=== PATIENT | female | born 1955 | race Caucasian/White ===

== ENCOUNTER 2016-07-04 09:33 | Day surgery (SDC) | payer BC ==
[2016-07-02 09:21] VITALS: BMI 22.3
[~2016-07-04 09:33] MED LIST: LACTATED RINGERS 1,000 ML IV SCH; LIDOCAINE 1% 20 ML VIAL (10MG/ML) FOR IV START INTRADERMA PRN
[2016-07-04 09:48] VITALS: RESP 16; TEMP 96.1
[2016-07-04] MEDS ORDERED: PROPOFOL 10 MG/ML 20 ML VIAL IV ONE (10:32)
--- NOTE | 2016-07-04 10:49 | P.PCN ---
Date of Procedure: 07/04/16 Procedure(s) Performed: BRIEF HISTORY: Patient is a 61-year-old pleasant white female, scheduled for an elective colonoscopy as a part of evaluation of prior history of colon polyps. Last colonoscopy was 5 years ago. PROCEDURE PERFORMED: Colonoscopy with biopsy PREOPERATIVE DIAGNOSIS: History of colon polyps. IV sedation per Anesthesia. PROCEDURE: After informed consent was obtained, the patient, was brought into the endoscopy unit. IV sedation was administered by Anesthesia under continuous monitoring. Digital rectal examination was normal. Initially the Olympus CF- 160 flexible video colonoscope was then inserted in the rectum, gradually advanced into the cecum without any difficulty. Careful examination was performed as the scope was gradually being withdrawn. Ileocecal valve and the appendiceal orifice were visualized and appeared normal. Prep was excellent. Mucosa of the cecum appeared normal. In the ascending colon there was a small flat polyp identified which was removed by biopsy. The rest of the ascending colon, transverse colon, descending colon, sigmoid colon, and rectum appeared normal. Retroflexion was performed in the rectum and no lesions were seen. The patient tolerated the procedure well. IMPRESSION: Small flat ascending colon polyp status post removal by biopsy. Rest of the colon appeared normal. RECOMMENDATIONS: Findings of this examination were discussed with the patient as well as her family. She was advised to follow with the biopsy results and have a repeat colonoscopy in 5 years.
[2016-07-04 11:14] VITALS: BP 147/93; PULSE 57
== END 2016-07-04 11:31 | disposition home or self-care (01) ==
LOC: ORWHC2ENDO 09:33
PROVIDERS: ATTEND Internal Medicine Gastroenterology
DX: Z12.11 Encounter for screening for malignant neoplasm of colon (principal); K63.5 Polyp of colon; Z86.010 Personal history of colon polyps; Z88.5 Allergy status to narcotic agent
CPT/HCPCS: 88305; 45380; J2704

== ENCOUNTER → 2018-02-19 | Outpatient (CLI) | payer BC ==
[2018-02-19 11:41] VITALS: BP 158/81; PULSE 71; TEMP 96.7; BMI 23.6
--- NOTE | 2018-02-19 13:38 | P.HPOB ---
History of Present Illness H&P Date: 02/19/18 Chief Complaint: The patient is here for her routine gynecologic exam and mammogram. This is a 62-year-old G2 PII with an LMP of 1992. The patient is status post [facility] for benign reasons. The patient is without gynecologic complaints Review of Systems The patient's weight has been stable over the last year. She denies respiratory , cardiac, or G.I. problems. She denies maltreatment or falling. She denies any significant problems with urinary leakage. Past Medical History Past Medical History: No Reported History Additional Past Medical History / Comment(s): Osteoporosis(managed by PCP in [place]) . History of Any Multi-Drug Resistant Organisms: None Reported Past Surgical History: Section (x2), Cholecystectomy, Hysterectomy ( AMILCAR in 1992.), Orthopedic Surgery, Tubal Ligation Additional Past Surgical History / Comment(s): rt knee surgery, neck surgery for "extra gland", christianne cataracts. Colonoscopy 2017(4th, rec.rpt 5yrs) Past Anesthesia/Blood Transfusion Reactions: Previous Problems w/ Anesthesia Additional Past Anesthesia/Blood Transfusion Reaction / Comment(s): sometimes problem coming out Past Psychological History: No Psychological Hx Reported Smoking Status: Former smoker Past Alcohol Use History: Occasional Additional Past Alcohol Use History / Comment(s): quit smoking 2014, smoked since age 15, 1/2 PPD. Restarted smoking and quit again 02/18. Past Drug Use History: None Reported Additional History: She's been since 1975 and is retired. 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 - Past Family History Mother Family Medical History: No Reported History Medications and Allergies Home Medications Medication Instructions Recorded Confirmed Type Ascorbic Acid [Vitamin C] 500 mg PO DAILY 07/02/16 02/19/18 History Calcium Carbonate [Calcium] 600 mg PO DAILY 07/02/16 02/19/18 History Eye Vitamin 1 tab PO DAILY 07/02/16 02/19/18 History Multivitamins, Thera [Multivitamin 1 tab PO DAILY 07/02/16 02/19/18 History (formulary)] Alendronate Sodium [Fosamax] 70 mg PO WEEKLY 02/19/18 02/19/18 History Allergies Allergy/AdvReac Type Severity Reaction Status Date / Time codeine Allergy Vomiting Verified 02/19/18 11:41 Exam Vital Signs Temp Pulse BP 02/19/18 11:13 96.7 F L 71 158/81 Intake and Output 02/18/18 02/19/18 02/19/18 22:59 06:59 14:59 Other: Weight 62.596 kg Height 5'4", weight 138 pounds, BMI 23.7. This is a well-developed well-nourished white female who is alert and oriented times 3 in no acute distress. HEENT: Within normal limits. NECK: Supple without mass or thyromegaly. CHEST AND LUNGS: Clear to auscultation. HEART: Regular rate and rhythm. BREASTS: Are without mass or discharge. AXILLARY EXAM: Negative for adenopathy. BACK: Negative for CVA tenderness. ABDOMEN: Soft, nontender, without palpable masses. PELVIC EXAM: External genitalia appears normal with mild atrophy. Vagina appears normal is mild atrophy. There is no evidence of prolapse. Bimanual examination is negative for mass or tenderness. RECTAL EXAM: Rectovaginal exam is negative for mass or tenderness and is negative for occult blood. EXTREMITIES: Nontender. IMPRESSION: 1. 62-year-old menopausal female status post AMILCAR for benign reasons with normal gynecologic exam. 2. Elevated blood pressure. 3. History of osteoporosis recently started on alendronate by her primary care physician in [place]. PLAN: 1. Pap smears have been discontinued. 2. Self breast awareness was discussed with the patient. 3. Screening mammogram will be done today. 4. Osteoporosis management was discussed. I have stressed the importance of adequate calcium, vitamin D and regular exercise. Recommended amounts of calcium and vitamin D were also discussed. She will continue on alendronate which she recently started through her primary care physician in [place], Dr. Dale Hargrove. She will follow up with him for her prescription and for bone density testing. 5. She did receive a flu shot this fall. 6. She states she does home blood pressure checks. I recommended she do this on a regular basis and follow up with her primary care physician for elevated blood pressures. 7. She will return in one year, or have her annual well woman exam done in [place], if desired.
--- NOTE | 2018-02-20 13:00 | MM ---
Reason for exam: screening (asymptomatic). Last mammogram was performed 1 year and 2 months ago. History: Patient is postmenopausal. Took estrogen for 12 years 1 month beginning at age 35. Physical Findings: A clinical breast exam by your physician is recommended on an annual basis and results should be correlated with mammographic findings. MG 3D Screening Mammo W/Cad Bilateral CC and MLO view(s) were taken. Prior study comparison: January 01, 2017, bilateral MG screening mammo w CAD. January 24, 2016, bilateral MG screening mammo w CAD. The breast tissue is heterogeneously dense. This may lower the sensitivity of mammography. There is no discrete abnormality. No significant changes when compared with prior studies. ASSESSMENT: Negative, BI-RAD 1 RECOMMENDATION: Routine screening mammogram of both breasts in 1 year.
== END ==
LOC: WWCWWP 10:53
PROVIDERS: ATTEND Obstetrics & Gynecology
DX: Z12.31 Encounter for screening mammogram for malignant neoplasm of breast (principal)
CPT/HCPCS: 77063; 77067

== ENCOUNTER → 2019-02-24 | Outpatient (CLI) | payer OTHER ==
[2019-02-24 09:39] VITALS: BP 174/102; PULSE 66; RESP 16; TEMP 97.8
--- NOTE | 2019-02-24 10:13 | P.HPOB ---
History of Present Illness H&P Date: 02/24/19 Chief Complaint: The patient is here for her routine gynecologic exam and ma mmogram. This is a 63-year-old with an LMP of 1992. She is status post [facility] for benign reasons. The patient is without gynecologic complaints. Review of Systems The patient has lost 5 pounds over the last year. She denies respiratory, cardiac, or G.I. problems. She states she has been under lots of stress because she no longer wants to live in [place] and wants to come back to [place]. Past Medical History Past Medical History: No Reported History Additional Past Medical History / Comment(s): Osteoporosis(managed by PCP in [place]). 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 History of Any Multi-Drug Resistant Organisms: None Reported Past Surgical History: Section, Cholecystectomy, Hysterectomy, Orthopedic Surgery, Tubal Ligation Additional Past Surgical History / Comment(s): rt knee surgery, neck surgery for "extra gland", christianne cataracts. section 2. AMILCAR 1992. Colonoscopy 2017(4th, next after 5yrs) Past Anesthesia/Blood Transfusion Reactions: Previous Problems w/ Anesthesia Additional Past Anesthesia/Blood Transfusion Reaction / Comment(s): sometimes problem coming out Past Psychological History: No Psychological Hx Reported Smoking Status: Light tobacco smoker (10 per week) Past Alcohol Use History: Occasional (8 per week) Additional Past Alcohol Use History / Comment(s): quit smoking 2014, smoked since age 15, 1/2 PPD. Restarted smoking. Past Drug Use History: None Reported Additional History: She has been since 1975 and is retired. 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 - Past Family History Mother Family Medical History: No Reported History Medications and Allergies Home Medications Medication Instructions Recorded Confirmed Type Ascorbic Acid [Vitamin C] 500 mg PO DAILY 07/02/16 02/24/19 History Calcium Carbonate [Calcium] 600 mg PO DAILY 07/02/16 02/24/19 History Eye Vitamin 1 tab PO DAILY 07/02/16 02/24/19 History Multivitamins, Thera [Multivitamin 1 tab PO DAILY 07/02/16 02/24/19 History (formulary)] Alendronate Sodium [Fosamax] 70 mg PO WEEKLY 02/19/18 02/24/19 History Allergies Allergy/AdvReac Type Severity Reaction Status Date / Time codeine Allergy Vomiting Verified 02/24/19 09:32 Exam Vital Signs Temp Pulse Resp BP Pulse Ox 02/24/19 09:33 97.8 F 66 16 174/102 96 Intake and Output 02/23/19 02/24/19 02/24/19 22:59 06:59 14:59 Other: Weight 60.328 kg Repeat blood pressure 152/82. Height 5 feet 4 inches, weight 133 pounds, BMI 22.8. This is a well-developed well-nourished white female who is alert and oriented times 3 in no acute distress. HEENT: Within normal limits. NECK: Supple without mass or thyromegaly. CHEST AND LUNGS: Clear to auscultation. HEART: Regular rate and rhythm. BREASTS: Are without mass or discharge. AXILLARY EXAM: Negative for adenopathy. BACK: Negative for CVA tenderness. ABDOMEN: Soft, nontender, without palpable masses. PELVIC EXAM: External genitalia appears normal with mild atrophy. Vagina appears normal of mild atrophy. There is no evidence of prolapse. Bimanual examination is negative for mass or tenderness. RECTAL EXAM: Rectovaginal exam is negative for mass or tenderness and is negative for occult blood. EXTREMITIES: Nontender. IMPRESSION: 1. 63-year-old female status post AMILCAR for benign reasons with normal gynecologic exam. 2. Elevated blood pressure. 3. History of osteoporosis on alendronate which is prescribed and managed by her primary care physician in [place]. She has been on alendronate since about 2018. PLAN: 1. Pap smears have been discontinued. 2. Self breast awareness was discussed with the patient. 3. Weaning mammogram will be done today. 4. Osteoporosis management was discussed. I have stressed the importance of adequate calcium, vitamin D and regular exercise. Recommended amounts of calcium and vitamin D were also discussed. She will continue to use of Fosamax as prescribed by her primary care physician in [place]. 5. We have discussed her elevated blood pressure. She understands that her blood pressure has progressively gotten worse over the past several years. I have recommended that she see her primary care physician regarding blood pressure elevations. I have also recommended that she check her own blood pressure at home on a daily basis. We have discussed the increased risk for heart attack and stroke with smoking and elevated blood pressure. I have recommended that she quit smoking and discuss treatment for blood pressure with her primary care physician. 6. The patient was advised to return in 1 year for her well woman examination.
--- NOTE | 2019-02-27 10:25 | MM ---
Reason for exam: screening (asymptomatic). Last mammogram was performed 1 year ago. History: Patient is postmenopausal. Took estrogen for 12 years 1 month beginning at age 35. Physical Findings: A clinical breast exam by your physician is recommended on an annual basis and results should be correlated with mammographic findings. MG 3D Screening Mammo W/Cad Bilateral CC and MLO view(s) were taken. XCCL view(s) were taken of the right breast. Prior study comparison: February 19, 2018, bilateral MG 3d screening mammo w/cad. January 01, 2017, bilateral MG screening mammo w CAD. There are scattered fibroglandular densities. There is chronic nodularity in the right breast. No significant changes when compared with prior studies. ASSESSMENT: Negative, BI-RAD 1 RECOMMENDATION: Routine screening mammogram of both breasts in 1 year.
== END | disposition home or self-care (01) ==
LOC: WWCWWP 09:20
PROVIDERS: ATTEND Obstetrics & Gynecology
DX: Z12.31 Encounter for screening mammogram for malignant neoplasm of breast (principal)
CPT/HCPCS: 77063; 77067

== ENCOUNTER → 2020-02-23 | Outpatient (CLI) | payer MEDICARE, OTHER ==
[2020-02-23 12:57] VITALS: BP 143/89; PULSE 74; RESP 18; TEMP 98
--- NOTE | 2020-02-23 13:33 | P.HPOB ---
History of Present Illness H&P Date: 02/23/20 Chief Complaint: The patient is here for her routine gynecologic exam and ma mmogram. This is a 64-year-old with an LMP of 1992. The patient is without gynecologic complaints. She states she discontinued the alendronate in 2018 which she took for osteoporosis. She states she was concerned about possible side effects such as osteonecrosis of the jaw. She denied having any issues with the medication directly. She is status post [facility] for benign reasons. Review of Systems The patient has gained 11 pounds over the last year. She attributes to weight gain to quitting smoking in March 2019 as well as the current Covid pandemic. She denies respiratory, cardiac, or G.I. problems. Past Medical History Past Medical History: No Reported History Additional Past Medical History / Comment(s): Osteoporosis(managed by PCP in [place]) use alendronate for one year. 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 History of Any Multi-Drug Resistant Organisms: None Reported Past Surgical History: Section, Cholecystectomy, Hysterectomy, Orthopedic Surgery, Tubal Ligation Additional Past Surgical History / Comment(s): rt knee surgery, neck surgery for "extra gland", christianne cataracts. section 2. AMILCAR 1992. Colonoscopy 2017(4th, next after 5yrs) Past Anesthesia/Blood Transfusion Reactions: Previous Problems w/ Anesthesia Additional Past Anesthesia/Blood Transfusion Reaction / Comment(s): sometimes problem coming out Past Psychological History: No Psychological Hx Reported Smoking Status: Former smoker Past Alcohol Use History: Occasional (5 per week) Additional Past Alcohol Use History / Comment(s): quit smoking in March 2018. Past Drug Use History: None Reported Additional History: She has been since 1975 and is retired. She recently moved back from [place] February 2020. - Past Family History Mother Family Medical History: No Reported History Medications and Allergies Home Medications Medication Instructions Recorded Confirmed Type Calcium Carbonate [Calcium] 600 mg PO DAILY 07/02/16 02/23/20 History Eye Vitamin 1 tab PO DAILY 07/02/16 02/23/20 History Multivitamins, Thera [Multivitamin 1 tab PO DAILY 07/02/16 02/23/20 History (formulary)] Allergies Allergy/AdvReac Type Severity Reaction Status Date / Time codeine Allergy Vomiting Verified 02/23/20 12:52 Exam Vital Signs Temp Pulse Resp BP Pulse Ox 02/23/20 12:52 98.0 F 74 18 143/89 94 L Intake and Output 02/22/20 02/23/20 02/23/20 22:59 06:59 14:59 Other: Weight 65.317 kg Height 5 feet 3-1/2 inches, weight 144 pounds, BMI 25.1. This is a well-developed well-nourished white female who is alert and oriented times 3 in no acute distress. HEENT: Within normal limits. NECK: Supple without mass or thyromegaly. CHEST AND LUNGS: Clear to auscultation. HEART: Regular rate and rhythm. BREASTS: Are without mass or discharge. AXILLARY EXAM: Negative for adenopathy. BACK: Negative for CVA tenderness. ABDOMEN: Soft, nontender, without palpable masses. PELVIC EXAM: External genitalia appears normal mild atrophy. Vagina appears normal mild atrophy. There is no evidence of prolapse. Bimanual examination is negative for mass or tenderness. RECTAL EXAM: Rectovaginal exam is negative for mass or tenderness and is negative for occult blood. EXTREMITIES: Nontender. IMPRESSION: 1. 64-year-old menopausal female status post AMILCAR for benign reasons with normal gynecologic exam. 2. History of osteoporosis status post 1 years use of alendronate which was prescribed by her PCP in [place]. She discontinued alendronate in 2019. PLAN: 1. Pap smears have been discontinued. 2. Self breast awareness was discussed with the patient. 3. Screening mammogram will be done today. 4. Osteoporosis management was discussed. I have stressed the importance of adequate calcium, vitamin D and regular exercise. Recommended amounts of calcium and vitamin D were also discussed. I have recommended redoing her bone density test. She would like to do this next year. 5. She states she has a home pressure cuff and I have recommended that she check her own blood pressure on a regular basis. She will follow-up with Dr. calvillo for blood pressure elevations. 6. She was advised to return in one year for her annual well woman exam.
--- NOTE | 2020-02-24 11:50 | MM ---
Reason for exam: screening (asymptomatic). Last mammogram was performed 1 year ago. History: Patient is postmenopausal. Took estrogen for 12 years 1 month beginning at age 35. Physical Findings: A clinical breast exam by your physician is recommended on an annual basis and results should be correlated with mammographic findings. MG 3D Screening Mammo W/Cad Bilateral CC, MLO, and XCCL view(s) were taken. Prior study comparison: February 24, 2019, bilateral MG 3d screening mammo w/cad. February 19, 2018, bilateral MG 3d screening mammo w/cad. The breast tissue is heterogeneously dense. This may lower the sensitivity of mammography. There is no discrete abnormality. No significant changes when compared with prior studies. ASSESSMENT: Benign, BI-RAD 2 RECOMMENDATION: Routine screening mammogram of both breasts in 1 year.
== END | disposition home or self-care (01) ==
LOC: WWCWWP 12:32
PROVIDERS: ATTEND Obstetrics & Gynecology
DX: Z12.31 Encounter for screening mammogram for malignant neoplasm of breast (principal)
CPT/HCPCS: 77063; 77067

== ENCOUNTER 2020-08-03 13:13 | Emergency (ER) | payer MEDICARE ==
[2020-08-03] MEDS ORDERED: SODIUM CHLORIDE 0.9% 1,000 ML IV STA (14:24)
[2020-08-03] MEDS ORDERED: MECLIZINE 12.5 MG TAB PO STA (14:24)
--- NOTE | 2020-08-03 14:45 | ED ---
Dizziness HPI - General Chief Complaint: Dizziness Stated Complaint: High BP Time Seen by Provider: 08/03/20 14:11 Source: patient, RN notes reviewed Mode of arrival: wheelchair Limitations: no limitations - History of Present Illness Initial Comments: Patient is a 65-year-old female that presents to the emergency department complaining of dizziness 2 days. She notes that she had a procedure done on Saturday and when she follow her blood pressure was elevated quite high approximately 190 over the low 100s to 110s. She noted that she call her [facility] physician this morning who got her in and started on lisinopril 20 mg per she notes that after taking her blood pressure medication she felt better already. She did note that she gets some dizziness with position change such as turning her head from [id number]. She denied any other complaints or issues at this time. She was a well-appearing well-hydrated 65-year-old female in no apparent distress or pain. 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 He stated that he was concerned about the dizziness for several days. She denied any chest pain shortness of breath headache nausea vomiting diarrhea constipation fever fatigue chills change in vision lightheadedness. - Related Data Home Medications Medication Instructions Recorded Confirmed Calcium Carbonate [Calcium] 600 mg PO DAILY 07/02/16 02/23/20 Eye Vitamin 1 tab PO DAILY 07/02/16 02/23/20 Multivitamins, Thera [Multivitamin 1 tab PO DAILY 07/02/16 02/23/20 (formulary)] Allergies Allergy/AdvReac Type Severity Reaction Status Date / Time codeine Allergy Vomiting Verified 08/03/20 13:34 Review of Systems ROS Statement: Those systems with pertinent positive or pertinent negative responses have been documented in the HPI. ROS Other: All systems not noted in ROS Statement are negative. Past Medical History Past Medical History: No Reported History, Hypertension Additional Past Medical History / Comment(s): Osteoporosis(managed by PCP in [place]) use alendronate for one year. 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 History of Any Multi-Drug Resistant Organisms: None Reported Past Surgical History: Section, Cholecystectomy, Hysterectomy, Ortho pedic Surgery, Tubal Ligation Additional Past Surgical History / Comment(s): rt knee surgery, neck surgery for "extra gland", christianne cataracts. section 2. AMILCAR 1992. Colonoscopy 2017(4th, next after 5yrs) Past Anesthesia/Blood Transfusion Reactions: Previous Problems w/ Anesthesia Additional Past Anesthesia/Blood Transfusion Reaction / Comment(s): sometimes problem coming out Past Psychological History: No Psychological Hx Reported Smoking Status: Former smoker Past Alcohol Use History: Occasional Past Drug Use History: None Reported - Past Family History Mother Family Medical History: No Reported History General Exam Limitations: no limitations General appearance: alert, in no apparent distress Head exam: Present: atraumatic, normocephalic, normal inspection Eye exam: Present: normal appearance, PERRL, EOMI. Absent: scleral icterus, conjunctival injection, periorbital swelling Neck exam: Present: normal inspection Respiratory exam: Present: normal lung sounds bilaterally. Absent: respiratory distress, wheezes, rales, rhonchi, stridor Cardiovascular Exam: Present: regular rate, normal rhythm, normal heart sounds. Absent: systolic murmur, diastolic murmur, rubs, gallop, clicks GI/Abdominal exam: Present: soft, normal bowel sounds. Absent: distended, tenderness, guarding, rebound, rigid Extremities exam: Present: normal inspection, full ROM, normal capillary refill. Absent: tenderness, pedal edema, joint swelling, calf tenderness Neurological exam: Present: alert, oriented X3, CN II-XII intact Expanded Patient oriented to: Present: person, place, time Speech: Present: fluid speech Cranial nerves: EOM's Intact: Normal, Tongue Deviation: Normal, Nystagmus: Normal Cerebellar function: Finger to Nose: Normal Eye Response: (4) open spontaneously Motor Response: (6) obeys commands Verbal Response: (5) oriented Psychiatric exam: Present: normal affect, normal mood Skin exam: Present: warm, dry, intact, normal color. Absent: rash Course Vital Signs 08/03/20 13:32 Temperature 97.6 F Pulse Rate 74 Respiratory 18 Rate Blood Pressure 147/97 O2 Sat by Pulse 97 Oximetry EKG Findings - EKG Comments: EKG Findings:: Ventricular rate 69 bpm, WI interval 174 ms, QRS duration 88 ms, QT/QTc 440/471 ms, PRT axes 35/35/24. Normal sinus rhythm, normal ECG. Medical Decision Making - Medical Decision Making 65-year-old female complaining of dizziness 2 days stating she felt better after taking her blood pressure medication Labs, EKG, chest x-ray, CT angiogram of the head and neck, 1 L normal saline, 25 mg of meclizine ordered. Imaging negative for any acute process. Patient is comfortable sitting up in bed and ready to go home. - Lab Data Result diagrams: 08/03/20 14:45 08/03/20 14:45 Lab Results 08/03/20 08/03/20 08/03/20 Range/Units 14:45 14:45 14:45 WBC 6.2 (3.8-10.6) k/uL RBC 4.56 (3.80-5.40) m/uL Hgb 14.9 (11.4-16.0) gm/dL Hct 42.2 (34.0-46.0) % MCV 92.4 (80.0-100.0) fL MCH 32.7 (25.0-35.0) pg MCHC 35.3 (31.0-37.0) g/dL RDW 11.9 (11.5-15.5) % Plt Count 249 (150-450) k/uL MPV 7.5 Neutrophils % 60 % Lymphocytes % 26 % Monocytes % 7 % Eosinophils % 4 % Basophils % 1 % Neutrophils # 3.7 (1.3-7.7) k/uL Lymphocytes # 1.6 (1.0-4.8) k/uL Monocytes # 0.4 (0-1.0) k/uL Eosinophils # 0.3 (0-0.7) k/uL Basophils # 0.1 (0-0.2) k/uL PT 10.3 (9.0-12.0) sec INR 1.0 (<1.2) APTT 24.1 (22.0-30.0) sec Sodium (137-145) mmol/L Potassium (3.5-5.1) mmol/L Chloride (98-107) mmol/L Carbon Dioxide (22-30) mmol/L Anion Gap mmol/L BUN (7-17) mg/dL Creatinine (0.52-1.04) mg/dL Est GFR (CKD-EPI)AfAm (>60 ml/min/1.73 sqM) Est GFR (CKD-EPI)NonAf (>60 ml/min/1.73 sqM) Glucose (74-99) mg/dL Calcium (8.4-10.2) mg/dL Magnesium (1.6-2.3) mg/dL Total Bilirubin (0.2-1.3) mg/dL AST (14-36) U/L ALT (4-34) U/L Alkaline Phosphatase (38-126) U/L Troponin I (0.000-0.034) ng/mL Total Protein (6.3-8.2) g/dL Albumin (3.5-5.0) g/dL Urine Color Light Yellow Urine Appearance Clear (Clear) Urine pH 5.5 (5.0-8.0) Ur Specific [place] 1.009 (1.001-1.035) Urine Protein Negative (Negative) Urine Glucose (UA) Negative (Negative) Urine Ketones Negative (Negative) Urine Blood Negative (Negative) Urine Nitrite Negative (Negative) Urine Bilirubin Negative (Negative) Urine Urobilinogen <2.0 (<2.0) mg/dL Ur Leukocyte Esterase Negative (Negative) 08/03/20 08/03/20 Range/Units 14:45 14:45 WBC (3.8-10.6) k/uL RBC (3.80-5.40) m/uL Hgb (11.4-16.0) gm/dL Hct (34.0-46.0) % MCV (80.0-100.0) fL MCH (25.0-35.0) pg MCHC (31.0-37.0) g/dL RDW (11.5-15.5) % Plt Count (150-450) k/uL MPV Neutrophils % % Lymphocytes % % Monocytes % % Eosinophils % % Basophils % % Neutrophils # (1.3-7.7) k/uL Lymphocytes # (1.0-4.8) k/uL Monocytes # (0-1.0) k/uL Eosinophils # (0-0.7) k/uL Basophils # (0-0.2) k/uL PT (9.0-12.0) sec INR (<1.2) APTT (22.0-30.0) sec Sodium 139 (137-145) mmol/L Potassium 3.8 (3.5-5.1) mmol/L Chloride 103 (98-107) mmol/L Carbon Dioxide 29 (22-30) mmol/L Anion Gap 7 mmol/L BUN 17 (7-17) mg/dL Creatinine 0.63 (0.52-1.04) mg/dL Est GFR (CKD-EPI)AfAm >90 (>60 ml/min/1.73 sqM) Est GFR (CKD-EPI)NonAf >90 (>60 ml/min/1.73 sqM) Glucose 130 H (74-99) mg/dL Calcium 9.7 (8.4-10.2) mg/dL Magnesium 2.1 (1.6-2.3) mg/dL Total Bilirubin 0.6 (0.2-1.3) mg/dL AST 28 (14-36) U/L ALT 22 (4-34) U/L Alkaline Phosphatase 72 (38-126) U/L Troponin I <0.012 (0.000-0.034) ng/mL Total Protein 7.3 (6.3-8.2) g/dL Albumin 4.5 (3.5-5.0) g/dL Urine Color Urine Appearance (Clear) Urine pH (5.0-8.0) Ur Specific [place] (1.001-1.035) Urine Protein (Negative) Urine Glucose (UA) (Negative) Urine Ketones (Negative) Urine Blood (Negative) Urine Nitrite (Negative) Urine Bilirubin (Negative) Urine Urobilinogen (<2.0) mg/dL Ur Leukocyte Esterase (Negative) - EKG Data -: EKG Interpreted by Az EKG shows normal: sinus rhythm Rate: normal EKG Comments: Ventricular rate 69 bpm, WI interval 174 ms, QRS duration 88 ms, QT/QTc 440/471 ms, PRT axes 35/35/24. Normal sinus rhythm, normal ECG. - Radiology Data Radiology results: report reviewed, image reviewed Asked x-ray: Mild pulmonary interstitial prominence may return mild pulmonary edema versus chronic interstitial lung changes. Clinical correlation is recommended. CT of the brain without contrast: Limited exam due to artifact demonstrates no evidence of acute intracranial hemorrhage as visualized small calcific density along the anterior cerebral artery on the left suggestive of intracranial atherosclerotic disease. Correlate with MRI as clinically warranted. CT angiogram of the head and neck: No significant hemodynamic stenosis of the karate bifurcations. No sizable aneurysm or vascular malformation. In the right submental region there is pathological lymphadenopathy measuring short axis of 1.1 cm. Differential diagnoses also include heterotopic submandibular gland tissue. Additionally there is an area of enhancement measuring 1.2 cm within the hypopharynx anteriorly into the left within the subglottic mucosa ENT consultation suggested to exclude mucosal lesion. Disposition Clinical Impression: Dizziness Disposition: HOME SELF-CARE Condition: Stable Instructions (If sedation given, give patient instructions): Dizziness (ED) Additional Instructions: Please return to the Emergency Department if symptoms worsen or any other concerns. Follow-up with primary care in the next 3-5 days. Follow-up with ENT principal finding of area on computed tomography scan. Continue take medications at home as prescribed. Is patient prescribed a controlled substance at d/c from ED?: No Referrals: Hakeem Montilla MD [Primary Care Provider] - 1-2 days Trung Reynoso MD [STAFF PHYSICIAN] - 1-2 days
[2020-08-03 15:06] LABS: Basophils # (A) 0.1 k/uL (0-0.2); Basophils % (A) 1 %; Eosinophils # (A) 0.3 k/uL (0-0.7); Eosinophils % (A) 4 %; HCT 42.2 % (34.0-46.0); HGB 14.9 gm/dL (11.4-16.0); Lymphocytes # (A) 1.6 k/uL (1.0-4.8); Lymphocytes % (A) 26 %; MCH 32.7 pg (25.0-35.0); MCHC 35.3 g/dL (31.0-37.0); MCV 92.4 fL (80.0-100.0); Mean Platelet Volume 7.5; Monocytes # (A) 0.4 k/uL (0-1.0); Monocytes % (A) 7 %; Neutrophils # (A) 3.7 k/uL (1.3-7.7); Neutrophils % (A) 60 %; Platelet Count 249 k/uL (150-450); RBC 4.56 m/uL (3.80-5.40); RDW 11.9 % (11.5-15.5); WBC 6.2 k/uL (3.8-10.6)
[2020-08-03 15:13] LABS: Appearance,Urine Clear (Clear); Bilirubin,Urine Negative (Negative); Blood,Urine Negative (Negative); Color,Urine Light Yellow; Glucose,Urine (UA) Negative (Negative); Ketones,Urine Negative (Negative); Leukocyte Esterase,Urine Negative (Negative); Nitrite,Urine Negative (Negative); PH, Urine 5.5 (5.0-8.0); Partial Thromboplastin Time 24.1 sec (22.0-30.0); Protein,Urine Negative (Negative); Prothrombin Time 10.3 sec (9.0-12.0); Specific Gravity,Urine 1.009 (1.001-1.035); Urobilinogen,Urine <2.0 mg/dL (<2.0)
[2020-08-03 15:15] LABS: ALT 22 U/L (4-34); AST 28 U/L (14-36); African American GFR (CKD) >90 (>60 ml/min/1.73 sqM); Albumin 4.5 g/dL (3.5-5.0); Alkaline Phosphatase 72 U/L (38-126); Anion Gap 7 mmol/L; Blood Urea Nitrogen 17 mg/dL (7-17); Calcium 9.7 mg/dL (8.4-10.2); Carbon Dioxide 29 mmol/L (22-30); Chloride 103 mmol/L (98-107); Glucose 130 mg/dL (74-99); Magnesium 2.1 mg/dL (1.6-2.3); Non-African American GFR(CKD) >90 (>60 ml/min/1.73 sqM); Potassium 3.8 mmol/L (3.5-5.1); Sodium 139 mmol/L (137-145); Total Bilirubin 0.6 mg/dL (0.2-1.3); Total Protein 7.3 g/dL (6.3-8.2)
--- NOTE | 2020-08-03 15:49 | CT ---
EXAMINATION TYPE: CT brain wo con DATE OF EXAM: 08/03/2020 COMPARISON: None HISTORY: Dizziness and hypertension. CT DLP: 1176.8 mGycm Automated exposure control for dose reduction was used. FINDINGS: Exam limited by severe artifact. Assessment of the skull base and posterior fossa nondiagnostic. Isela ining portion of the visualized parenchymal demonstrate limitation along the occipital lobes. Visuali zed portions demonstrate no acute hemorrhage or mass effect or midline shift. Calvarium intact. Orbit s are symmetric. Craniocervical junction maintained. Sella turcica has a normal appearance. Tiny calc ification involving the left anterior cerebral artery IMPRESSION: LIMITED EXAM DUE TO ARTIFACT DEMONSTRATES NO EVIDENCE OF ACUTE INTRACRANIAL HEMORRHAGE VISUALIZED. SMALL CALCIFIC DENSITY ALONG THE ANTERIOR CEREBRAL ARTERY ON THE LEFT SUGGESTIVE OF INTRACRANIAL ATH EROSCLEROTIC DISEASE. CORRELATE WITH MRI CLINICALLY WARRANTED.
--- NOTE | 2020-08-03 15:53 | XR ---
EXAMINATION TYPE: XR chest 1V portable DATE OF EXAM: 08/03/2020 COMPARISON: 12/20/2009 HISTORY: 65-year-old female with dizziness, hypertension TECHNIQUE: Single frontal view of the chest is obtained. FINDINGS: AP single view chest was obtained. Heart size is within normal limits. Atherosclerotic aort a. No focal consolidation, pneumothorax or pleural effusion. Mild pulmonary interstitial prominence m ay be due to chronic interstitial changes versus mild edema. IMPRESSION: 1. Mild pulmonary interstitial prominence may represent mild pulmonary edema versus chronic interstit ial lung changes. Clinical correlation is recommended.
--- NOTE | 2020-08-03 16:18 | CT ---
EXAMINATION TYPE: CT angio head neck DATE OF EXAM: 08/03/2020 HISTORY: Dizziness x2 days and hypertension. COMPARISON: CT brain 08/03/2020 CT DLP: 438.5 mGycm. Automated Exposure Control for Dose Reduction was Utilized. TECHNIQUE: CTA scan of the neck is performed with IV Contrast, patient injected with 65ml mL of Isov ue 370, axial images are obtained, coronal and sagittal reformatted images are reviewed. Three-D ana paula nstructed images are created on an independent workstation and reviewed. FINDINGS: Exam limited due to artifact. Grossly the vertebral basilar system appears to be patent wit h the right vertebral artery slightly larger than the left. No sizable aneurysm or vascular malformat ion. Anterior cerebral and middle cerebral arteries are patent bilaterally. Suggestion of the right p osterior cerebral artery originating from the anterior circulation. Carotid bifurcations are widely patent bilaterally with no significant hemodynamic stenosis. Mild ath erosclerotic plaque aortic bifurcation. The submental space on the right there appears to be a normal-appearing submandibular gland however m ore cranial there is a soft tissue nodule measuring 1.2 cm in short axis suggestive of pathologic allyssa nopathy. Heterotopic submandibular tissue also the differential diagnosis. Additionally, the left sub mandibular gland is not well identified. There also appears to be area of enhancement within the hypo pharynx anteriorly in the left supraglottic region for which ENT consultation suggested to exclude mu cosal lesion. Multinodular thyroid changes are seen. Hypertrophic and degenerative change of the spin e. Shotty adenopathy seen throughout the compartments of the neck. Lung apices clear. IMPRESSION: 1. No significant hemodynamic stenosis of the carotid bifurcations. 2. No sizable aneurysm or vascular malformation. 3. In the right submental region there is pathologic lymphadenopathy measuring short axis of 1.1 cm. Differential diagnosis would also include heterotopic submandibular gland tissue. Additionally there is an area of enhancement measuring 1.2 cm within the hypopharynx anteriorly and to the left within t he supraglottic mucosa. ENT consultation suggested to exclude mucosal lesion.
[2020-08-03 17:26] VITALS: BP 146/88; PULSE 71; RESP 16; TEMP 98
== END 2020-08-03 17:25 | disposition home or self-care (01) ==
LOC: EC 13:13
DX: R42 Dizziness and giddiness (principal); I10 Essential (primary) hypertension; Z90.49 Acquired absence of other specified parts of digestive tract; Z90.710 Acquired absence of both cervix and uterus; Z98.51 Tubal ligation status; Z87.891 Personal history of nicotine dependence
CPT/HCPCS: 99284 ×2; 96360 ×2; 36415; 93005; 80053; 83735; 84484; 85025; 85610; 85730; 81003; 71045; 70496; 70450; 70498; Q9967

== ENCOUNTER → 2020-08-30 | Outpatient (CLI) | payer MEDICARE ==
--- NOTE | 2020-08-30 12:47 | US ---
EXAMINATION TYPE: US thyroid st tissue head/neck DATE OF EXAM: 08/30/2020 COMPARISON: CT CLINICAL HISTORY: E04.[address] GLAND SIZE: Right Lobe: 4.2 x 1.5 x 1.8 cm Overall Parenchyma: heterogenous Left Lobe: 3.9 x 1.4 x 1.6 cm Overall Parenchyma: heterogeneous Isthmus Thickness: 0.3 cm NODULES RIGHT: # of nodules measured on right: 1 1. 0.8 X 0.7 x 0.9 cm, mid medial, Colloid cyst Prior size: No prior Right lobe has multiple colloid cysts, largest cyst measured LEFT: # of nodules measured on left: 2 1. 1.2 X 0.8 x 1.0 cm, mid lateral, solid or almost completely solid, hypoechoic nodule, which is w ider than tall, with smooth margins, without echogenic foci. Prior size: No prior 2. 0.6 X 0.4 x 0.5 cm, mid, solid or almost completely solid, hypoechoic nodule, which is wider th an tall, with smooth margins, without echogenic foci. Prior size: No prior Left thyroid nodules are consistent with a TI-RADS 4 nodules. Continued sonographic follow-up is ana paula mmended. ISTHMUS: # of nodules measured in the isthmus: 0 Bilateral neck scanned, right submandibular area- normal appearing lymph node= 0.5 cm, otherwise no a bnormal lymph nodes could be visualized by ultrasound. Multiple nodules bilateral thyroid. IMPRESSION: 1. 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 2. Left thyroid nodules are consistent with a TI-RADS 4 nodules. Continued yearly sonographic follow- up is recommended. 3. 5 mm lymph node within the right submandibular region. This is likely reactive. 2017 ACR TI-RADS LEVEL: *Highest TI-RADS level nodule reported
== END | disposition home or self-care (01) ==
LOC: RADUSWWP 07:54
PROVIDERS: ATTEND Otolaryngology
DX: E04.2 Nontoxic multinodular goiter (principal)
CPT/HCPCS: 76536

== ENCOUNTER → 2021-01-18 | Outpatient (CLI) | payer MEDICARE ==
[~2021-01-18] MED LIST changes: +BAMLANIVIMAB (EUA) 700 MG, ETESEVIMAB (EUA) 1,400 MG in SODIUM CHLORIDE 0.9% 50 ML IVPB ONE; -LACTATED RINGERS 1,000 ML IV SCH; -LIDOCAINE 1% 20 ML VIAL (10MG/ML) FOR IV START INTRADERMA PRN; +SODIUM CHLORIDE 0.9% 50 ML IVPB ONE; +SODIUM CHLORIDE 0.9% 500 ML 500 ML in EMPTY BAG 1 BAG IV PRN
[2021-01-18 14:00] VITALS: RESP 16
[2021-01-18 14:38] VITALS: BP 152/93; PULSE 66; TEMP 97.9
== END ==
LOC: PROCWHC3 13:03
PROVIDERS: ATTEND Internal Medicine Geriatric Medicine
DX: U07.1 COVID-19 (principal); F17.200 Nicotine dependence, unspecified, uncomplicated; Z88.5 Allergy status to narcotic agent
CPT/HCPCS: 96360; J3490; M0245

== ENCOUNTER → 2021-03-01 | Outpatient (CLI) | payer OTHER ==
--- NOTE | 2021-03-01 10:05 | US ---
EXAMINATION TYPE: US thyroid st tissue head/neck DATE OF EXAM: 03/01/2021 COMPARISON: US CLINICAL HISTORY: E04.1 THYROID NODULE. Follow up multiple thyroid nodules. GLAND SIZE: Right Lobe: 3.7 x 1.9 x 1.2 cm Overall Parenchyma: homogeneous Left Lobe: 3.4 x 1.6 x 1.3 cm Overall Parenchyma: homogeneous Isthmus Thickness: 0.2 cm NODULES RIGHT: # of nodules measured on right: 3 largest of multiple 1. 0.9 X 0.9 x 0.8 cm, upper pole, mixed cystic, hypoechoic nodule, which is wider than tall, with smooth margins, with echogenic foci. Prior size: 0.8 x 0.9 x 0.7 cm 2. 0.7 X 0.7 x 0.5 cm, mid medial, mixed cystic, hypoechoic nodule, which is wider than tall, with smooth margins, with echogenic foci. Prior size: none measured 3. 0.8 X 0.6 x 0.4 cm, lower mid, spongiform, hypoechoic nodule, which is wider than tall, with ill -defined margins, without echogenic foci. Prior size: non measured LEFT: # of nodules measured on left: 3 largest of multiple 1. 1.3 X 0.9 x 0.7 cm, upper mid, spongiform, hypoechoic nodule, which is wider than tall, with lob ulated or irregular margins, with echogenic foci. Prior size: 1.2 x 1.0 x 0.8 cm 2. 0.6 X 0.6 x 0.6 cm, mid lateral, spongiform, hypoechoic nodule, which is wide as is tall, with ill-defined margins, without echogenic foci. Prior size: 0.6 x 0.5 x 0.4 cm 3. 0.5 X 0.5 x 0.3 cm, lower medial, cystic or almost completely cystic, very hypoechoic nodule, wh ich is wider than tall, with smooth margins, without echogenic foci. Prior size: none measured ISTHMUS: # of nodules measured in the isthmus: 0 Bilateral neck scanned: couple of lymph nodes are seen superior to left thyroid with larger node = 1. 2 x 1.0 x 0.4cm. IMPRESSION: Stable nonspecific thyroid nodularity.
== END | disposition home or self-care (01) ==
LOC: RADUSWWP 09:00
PROVIDERS: ATTEND Otolaryngology
DX: E04.2 Nontoxic multinodular goiter (principal)
CPT/HCPCS: 76536

== ENCOUNTER → 2021-08-18 | Outpatient (CLI) | payer MEDICARE ==
--- NOTE | 2021-08-20 11:14 | US ---
EXAMINATION TYPE: US thyroid st tissue head/neck DATE OF EXAM: 08/18/2021 COMPARISON: NONE CLINICAL HISTORY: E04.1 THYROID NODULE. GLAND SIZE: Right Lobe: 4.7 x 1.6 x 1.9 cm Overall Parenchyma: homogenous Left Lobe: 4.0 x 1.3 x 1.6 cm Overall Parenchyma: homogeneous Isthmus Thickness: 0.2 cm NODULES RIGHT: # of nodules measured on right: 3 largest of multiple 1.)1.0 x 0.7 x 1.0 cm, upper pole, cystic, anechoic nodule, which is wider than tall, with smooth ma rgins, with echogenic foci. Prior size: 0.9 X 0.9 x 0.8 cm 2.) 0.6 x 0.4 x 0.6cm, mid medial, cystic, anechoic nodule, which is wider than tall, with smooth mar gins, with echogenic foci. Prior size: 0.7 X 0.7 x 0.5 3.) 0.6 x 0.5 x 0.6cm, lower mid, spongiform, hypoechoic nodule, which is wider than tall, with ill- defined margins, without echogenic foci. Prior size: 0.8 X 0.6 x 0.4 LEFT: # of nodules measured on left: 3 largest of multiple 1. 1.2 x 0.7 x 0.9cm, upper mid, spongiform, hypoechoic nodule, which is wider than tall, with briana h margins. Prior size: 1.3 X 0.9 x 0.7 cm 2.) 0.5 x 0.5 x 0.5 cm, mid lateral, spongiform, hypoechoic nodule, which is wide as is tall, with i ll-defined margins, without echogenic foci. Prior size: 0.6 x 0.6 x 0.6 cm 3.) 0.7 x 0.3 x 0.6cm, lower medial, cystic or almost completely cystic, very hypoechoic nodule, whic h is wider than tall, with smooth margins, without echogenic foci. Prior size: 0.5 X 0.5 x 0.3 ISTHMUS: # of nodules measured in the isthmus: 0 Bilateral neck scanned, no evidence of lymphadenopathy. IMPRESSION: Mildly suspicious, recommend follow-up ultrasound in 2 years 2017 ACR TI-RADS LEVEL: TR 3 *Highest TI-RADS level nodule reported
== END | disposition home or self-care (01) ==
LOC: RADUSWWP 16:08
PROVIDERS: ATTEND Otolaryngology
DX: E04.2 Nontoxic multinodular goiter (principal)
CPT/HCPCS: 76536

== ENCOUNTER → 2021-11-07 | Outpatient (CLI) | payer MEDICARE ==
--- NOTE | 2021-11-08 01:15 | CONS ---
CONSULTATION REASON FOR CONSULTATION: Snoring. HISTORY OF PRESENT ILLNESS: A 66-year-old female patient coming in with symptoms of loud snoring. Today, she is accompanied by her . The patient goes to bed around 10:30 p.m., wakes up at 6:45 a.m. in the morning. No reported episodes of witnessed apneas. Denies waking up, choking, or gasping for air. No grinding of the teeth. No sleepwalking or sleep talking. No restlessness in lower extremities. No daytime issues with memory and concentration or tiredness, or fatigue, or sleepiness. Takes a few minutes to fall asleep and she wakes up refreshed. No recent weight gain. PAST MEDICAL HISTORY: Hypertension. PAST SURGICAL HISTORY: Cholecystectomy and hysterectomy. DRUG ALLERGIES: Not known. MEDICATIONS: 1. Amlodipine. 2. Lisinopril. SOCIAL HISTORY: The patient is a former smoker, quit in 2019. She has around 40 year smoking history on half pack of cigarettes a day. FAMILY HISTORY: Positive for asthma and high blood pressure. REVIEW OF SYSTEMS: A 14-point review of systems was done and positive findings are mentioned in history of present illness. Of significance is the absence of any nasal congestion or postnasal drainage or history of any sinus allergies. No recent weight gain. Her weight has remained stable. No substance abuse. No head trauma. PHYSICAL EXAMINATION: VITAL SIGNS: BP is 131/83, pulse 70, respirations 16, temperature 97.8, saturation 94% on room air. Height is 5 feet 4 inches, weight is 142, and neck size is 13.5 inches. GENERAL APPEARANCE: Calm, comfortable, no acute distress. HEENT: Head is atraumatic, normocephalic. NECK: Supple. Mallampati class 4. Significant crowding of posterior pharynx. No goiter or neck masses. Micrognathia and overbite are also present. LUNGS: Clear to auscultation. HEART: Sounds regular, rhythm normal. S1, S2. No murmurs. ABDOMEN: Soft, nontender. No organomegaly. EXTREMITIES: No edema, no cyanosis or clubbing. NEUROLOGIC: Awake and alert. There is no focal neurological deficit. IMPRESSION: 1. Snoring. Rule out obstructive sleep apnea. Chronically, sleep apnea is felt to be less likely as the patient does not have any typical symptomatology that follows with sleep apnea. She may have essentially primary snoring. On examination, she has micrognathia, overbite, and significant crowding of posterior pharynx, which probably has put her as an anatomic disadvantage resulting into excessive snoring. 2. Hypertension. PLAN: Do a sleep study to screen this patient for obstructive sleep apnea. If no sleep apnea, we will proceed with conservative measures of losing weight, sleeping on the side, avoiding alcohol intake at least 3 hours prior to going to bed and considering the possibility of a snore guard/oral appliance to improve her snoring severity. We will continue to follow. MMODL / IJN: [id number] /
== END ==
LOC: SLEEP 13:57
PROVIDERS: ATTEND Internal Medicine Critical Care Medicine
DX: R06.83 Snoring (principal); I10 Essential (primary) hypertension; Z87.891 Personal history of nicotine dependence; Z79.899 Other long term (current) drug therapy; Z88.5 Allergy status to narcotic agent
CPT/HCPCS: 99211

== ENCOUNTER → 2022-01-18 | Outpatient (CLI) | payer MEDICARE ==
--- NOTE | 2022-01-18 18:02 | BD ---
EXAMINATION TYPE: Axial Bone Density DATE OF EXAM: 01/18/2022 COMPARISON: NONE CLINICAL HISTORY: 66 years year old Female. ICD-10 CODE: Z78.0 Post menopausal Height: 5 FT 4 IN Weight: 143 FRAX RISK QUESTIONS: Alcohol (3 or more units per day): NO Family History (Parent hip fracture): YES Glucocorticoids (More than 3mos): NO (Ex: prednisone, prednisolone, methylprednisolone, dexamethasone, and hydrocortisone). History of Fracture in Adulthood: YES Secondary Osteoporosis: 1. Type 1 Diabetes: NO 2. Hyperthyroidism: NO 3. Menopause before 45: YES 4. Malnutrition: NO 5. Chronic liver disease: NO Rheumatoid Arthritis: NO Current Tobacco Use: NO RISK FACTORS HISTORY OF: Surgery to Spine/Hip(right/left)/Wrist (right/left): NO Family History of Osteoporosis: NO Active: YES Diet low in dairy products/other sources of calcium: NO Postmenopausal woman: YES Lost more than 2 inches in height since high school: NO Frequent falls: NO Poor Health: GOOD Hyperparathyroidism: NO Adrenal Insufficiency: NO MEDICATIONS: Additional Medications: BLOOD PRESSURE MEDS Additional History: EXAM MEASUREMENTS: Bone mineral densitometry was performed using the [email or web address] System. Bone mineral density as measured about the Lumbar spine is: ----- L1-L4(G/cm2): 0.934 T Score Values are as follows: ----- L1: -2.4 ----- L2: -2.2 ----- L3: -2.2 ----- L4: -1.6 ----- L1-L4: -2.1 BASELINE Bone mineral density about the R hip (g/cm2): 0.724 Bone mineral density about the L hip (g/cm2): 0.707 T Score values are as follows: -----R Neck: -2.3 -----L Neck: -2.4 -----R Total: -1.4 -----L Total: -1.9 BASELINE FRAX%s: The graph provided illustrates a 17.4 % chance for a major osteoporotic fx and a 5.0% chance for the hips probability for fx in 10 years time. IMPRESSION: Osteopenia (T Score between -2.5 and -1). Note that measurements are bordering on osteoporosis at the hips and L1 vertebral body segment. There is slightly increased risk of fracture and the patient may be considered for treatment. Re-Screen 2-5 years. NOTE: T-SCORE=SD OF THE YOUNG ADULT MEAN.
== END | disposition home or self-care (01) ==
LOC: RADBDWWP 14:49
PROVIDERS: ATTEND Obstetrics & Gynecology
DX: M85.89 Other specified disorders of bone density and structure, multiple sites (principal); Z78.0 Asymptomatic menopausal state
CPT/HCPCS: 77080

== ENCOUNTER → 2022-04-03 | Outpatient (CLI) | payer MEDICARE ==
[2022-04-03 14:09] VITALS: PULSE 73; RESP 16; TEMP 97.8
--- NOTE | 2022-04-03 14:54 | P.HPOB ---
History of Present Illness H&P Date: 04/03/22 Chief Complaint: The patient is here for her routine gynecologic exam and ma mmogram. This is a 66-year-old with an LMP of 1992. She is status post AMILCAR for benign reasons. She is without gynecologic complaints. Review of Systems The patient's weight has been stable over the last year. She denies respiratory, cardiac, or G.I. problems. Past Medical History Past Medical History: Hypertension Additional Past Medical History / Comment(s): Osteoporosis(managed by PCP in [place]) use alendronate for one year. Benign thyroid nodules. 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 History of Any Multi-Drug Resistant Organisms: None Reported Past Surgical History: Section, Cholecystectomy, Hysterectomy, Orthopedic Surgery, Tubal Ligation Additional Past Surgical History / Comment(s): rt knee surgery, neck surgery for "extra gland", christianne cataracts. section 2. AMILCAR 1992. Colonoscopy 2017(4th, next after 5yrs). Past Anesthesia/Blood Transfusion Reactions: Previous Problems w/ Anesthesia Additional Past Anesthesia/Blood Transfusion Reaction / Comment(s): sometimes problem coming out-TAKES LONGER TO WAKE Past Psychological History: No Psychological Hx Reported Smoking Status: Never smoker Past Alcohol Use History: Daily (2 drinks per day.) Additional Past Alcohol Use History / Comment(s): STARTED SMOKING AT AGE 16 quit smoking in March 2018.SMOKED 1/2 PPD Past Drug Use History: None Reported Additional History: She has been since 1975 and is retired. - Past Family History Mother Family Medical History: No Reported History Sister(s) Family Medical History: Dementia Additional Family Medical History / Comment(s): 3 sisters with dementia. Medications and Allergies Home Medications Medication Instructions Recorded Confirmed Type Calcium Carbonate [Calcium] 1,200 mg PO DAILY 07/02/16 04/03/22 History Multivitamins, Thera [Multivitamin 1 tab PO DAILY 07/02/16 04/03/22 History (formulary)] Cholecalciferol [Vitamin D3 (25 25 mcg PO DAILY 08/03/20 04/03/22 History Mcg = 1000 Iu)] Vit C/E/Zn/Coppr/Lutein/Zeaxan 1 tab PO BID 08/03/20 04/03/22 History [Preservision Areds 2 Softgel] lisinopriL 40 mg PO DAILY 01/18/21 04/03/22 History amLODIPine [Norvasc] 5 mg PO DAILY 02/22/21 04/03/22 History Allergies Allergy/AdvReac Type Severity Reaction Status Date / Time codeine Allergy Vomiting Verified 04/03/22 14:04 Exam Vital Signs Temp Pulse Resp Pulse Ox 04/03/22 14:05 97.8 F 73 16 96 Intake and Output 04/02/22 04/03/22 04/03/22 22:59 06:59 14:59 Other: Weight 66.678 kg Height 5 feet 4 inches, weight 146 pounds, BMI 25.2. This is a well-developed well-nourished white female who is alert and oriented times 3 in no acute distress. HEENT: Within normal limits. NECK: Supple without mass or thyromegaly. CHEST AND LUNGS: Clear to auscultation. HEART: Regular rate and rhythm. BREASTS: Are without mass or discharge. AXILLARY EXAM: Negative for adenopathy. BACK: Negative for CVA tenderness. ABDOMEN: Soft, nontender, without palpable masses. PELVIC EXAM: External genitalia appears normal with mild to moderate atrophy. Vagina appears normal mild atrophy. There is no evidence of prolapse. Bimanual examination is negative for mass or tenderness. RECTAL EXAM: Rectovaginal exam is negative for mass or tenderness and is negative for occult blood. EXTREMITIES: Nontender. IMPRESSION: 1. 66-year-old menopausal female status post AMILCAR for benign reasons, with normal gynecologic exam. 2. History of osteoporosis status post 1 years use of alendronate. PLAN: 1. Pap smears have been discontinued. 2. Self breast awareness was discussed with the patient. We have also discussed symptoms associated with inflammatory breast cancer. 3. Screening mammogram will be done today. 4. Osteoporosis management was discussed. I have stressed the importance of adequate calcium, vitamin D and regular exercise. Recommended amounts of calcium and vitamin D were also discussed. Her most recent bone density test was done on 01/18/2022 and was in the osteopenia range. We will plan on repeating bone density test in approximately 2 years. 5. She believes she is due for a colonoscopy and we'll arrange this through her PCP. 6. She was advised to return in one year for her annual well woman exam.
--- NOTE | 2022-04-04 08:37 | MM ---
Reason for Exam: Screening (asymptomatic). Last screening mammogram was performed 12 month(s) ago. Patient History: Menarche at age 16. First Full-Term at age 24. Hysterectomy at age 35. Postmenopausal. Estrogen, starting at age 35 for 12 years, 1 month. Risk Values: [place] 5 year model risk: 1.7%. NCI Lifetime model risk: 5.9%. Prior Study Comparison: 02/24/2019 Bilateral Screening Mammogram, [facility]. 02/23/2020 Bilateral Screening Mammogram, [facility]. 03/21/2021 Bilateral Screening Mammogram, [facility]. Tissue Density: The breast tissue is heterogeneously dense. This may lower the sensitivity of mammography. Findings: Analyzed By CAD. There is no suspicious group of microcalcifications or new suspicious mass in either breast. Overall Assessment: Negative, BI-RAD 1 Management: Screening Mammogram of both breasts in 1 year. A clinical breast exam by your physician is recommended on an annual basis and results should be correlated with mammographic findings. [facility] will attempt to contact patient to return for supplemental views and ultrasound if indicated. Electronically signed and approved by: Richard Olguin DO
== END ==
LOC: WWCWWP 13:58
PROVIDERS: ATTEND Obstetrics & Gynecology
DX: Z01.419 Encounter for gynecological examination (general) (routine) without abnormal findings (principal); Z12.31 Encounter for screening mammogram for malignant neoplasm of breast; Z90.711 Acquired absence of uterus with remaining cervical stump; Z87.310 Personal history of (healed) osteoporosis fracture; I10 Essential (primary) hypertension; Z88.5 Allergy status to narcotic agent; Z88.8 Allergy status to other drugs, medicaments and biological substances; F17.210 Nicotine dependence, cigarettes, uncomplicated
CPT/HCPCS: 77063; 77067

== ENCOUNTER → 2022-07-12 | Outpatient (CLI) | payer MEDICARE ==
--- NOTE | 2022-07-12 15:20 | US ---
EXAMINATION TYPE: US thyroid st tissue head/neck DATE OF EXAM: 07/12/2022 COMPARISON: NONE CLINICAL INDICATION: Female, 67 years old with history of E04.1 NONTOXIC SINGLE THYROID NODULE; goite r GLAND SIZE: Right Lobe: 4.1x1.8x2.0 cm Overall Parenchyma: homogenous Left Lobe: x1.6x1.4 cm Overall Parenchyma: homogeneous Isthmus Thickness: 0.3 cm NODULES RIGHT: # of nodules measured on right: 2 1. 1.1 X 0.8 x 0.9 cm, upper medial, cystic or almost completely cystic, anechoic nodule, which is taller than wide, with smooth margins, without echogenic foci. Prior size: 1.0 x .8 x .9 cm 2. 0.6 X 0.4 x 0.8 cm, mid medial, cystic or almost completely cystic, anechoic nodule, which is ta ller than wide, with smooth margins, without echogenic foci. Prior size: .6 x .4 x .6 cm 3. Third nodule seen on previous exam not well visualized on today's study. LEFT: # of nodules measured on left: 2 1. 1.2 X 0.7 x 1.1 cm, upper lateral, solid or almost completely solid, hypoechoic TR 4 nodule, whi ch is taller than wide, with lobulated or irregular margins, without echogenic foci. Prior size: 1.2 x .7 x .9 cm 2. 0.6 X 0.5 x 0.6 cm, mid lateral, solid or almost completely solid, hypoechoic TR 4 nodule, whic h is taller than wide, with smooth margins, without echogenic foci. Prior size: .5 x .5 x .5 cm 3. 0.5 X 0.2 x 0.4 cm, lower lateral, solid or almost completely solid, hypoechoic TR 4 nodule, whi ch is taller than wide, with smooth margins, without echogenic foci. Prior size: Not measured on previous. ISTHMUS: # of nodules measured in the isthmus: 0 Bilateral neck scanned, no evidence of lymphadenopathy. IMPRESSION: Redemonstrated benign cysts in the right lobe measuring up to 1.1 cm. A few TR4 nodules on the left m easure up to 1.2 cm and are not significantly changed. Reassess at follow-up. FNA if they reach 1.5 c m.
== END | disposition home or self-care (01) ==
LOC: RADUSWWP 09:02
PROVIDERS: ATTEND Otolaryngology
DX: E04.2 Nontoxic multinodular goiter (principal)
CPT/HCPCS: 76536

== ENCOUNTER 2022-09-14 14:02 | Emergency (ER) | payer MEDICARE ==
[2022-09-14] MEDS ORDERED: KETOROLAC 15 MG/ML 1 ML VIAL IM STA (14:26)
--- NOTE | 2022-09-14 14:52 | XR ---
EXAMINATION TYPE: XR shoulder complete LT DATE OF EXAM: 09/14/2022 COMPARISON: None HISTORY: Pain fall TECHNIQUE: Left shoulder is examined in 2 projections. FINDINGS: No acute fracture or dislocation is evident. Humeral head articulates with the glenoid. Acr omioclavicular junction appears normal. Follow up exams can be performed as clinically indicated IMPRESSION: 1. No acute osseous abnormalities left shoulder
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
[2022-09-14] MEDS ORDERED: HYDROmorphone 0.5 MG/0.5 ML SYRINGE IVP STA (15:28)
[2022-09-14] MEDS ORDERED: ONDANSETRON ODT 4 MG TAB PO STA (15:28)
[2022-09-14] MEDS ORDERED: HYDROmorphone 0.5 MG/0.5 ML SYRINGE IM STA (15:28)
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
[2022-09-14 17:28] VITALS: BP 134/78; PULSE 75; RESP 16; TEMP 98.2
== END 2022-09-14 17:28 | disposition home or self-care (01) ==
LOC: EC 14:02
DX: S32.9XXA Fracture of unspecified parts of lumbosacral spine and pelvis, initial encounter for closed fracture (principal); S42.002A Fracture of unspecified part of left clavicle, initial encounter for closed fracture; I10 Essential (primary) hypertension; Z79.899 Other long term (current) drug therapy; Z88.5 Allergy status to narcotic agent; V28.49XA Other motorcycle driver injured in noncollision transport accident in traffic accident, initial encounter; Y92.410 Unspecified street and highway as the place of occurrence of the external cause; Y93.55 Activity, bike riding
CPT/HCPCS: 73030; 73502; 73000; 99284; 96372 ×2; J1885; J1170

== ENCOUNTER 2022-09-17 13:35 | Inpatient (IN) | payer MEDICARE ==
[2022-09-17 14:49] LABS: Basophils % (A) 1 %; Eosinophils # (A) 0.3 k/uL (0-0.7); Eosinophils % (A) 3 %; HCT 37.8 % (34.0-46.0); HGB 12.8 gm/dL (11.4-16.0); Lymphocytes # (A) 1.8 k/uL (1.0-4.8); Lymphocytes % (A) 18 %; MCH 31.7 pg (25.0-35.0); MCHC 33.9 g/dL (31.0-37.0); MCV 93.4 fL (80.0-100.0); Mean Platelet Volume 8.9; Monocytes # (A) 1.1 k/uL (0-1.0); Monocytes % (A) 11 %; Neutrophils # (A) 6.4 k/uL (1.3-7.7); Neutrophils % (A) 64 %; Platelet Count 196 k/uL (150-450); RBC 4.05 m/uL (3.80-5.40); RDW 12.5 % (11.5-15.5)
[2022-09-17 15:06] LABS: African American GFR (CKD) >90 (>60 ml/min/1.73 sqM); Anion Gap 8 mmol/L; Blood Urea Nitrogen 14 mg/dL (7-17); Calcium 8.6 mg/dL (8.4-10.2); Carbon Dioxide 27 mmol/L (22-30); Chloride 101 mmol/L (98-107); Glucose 102 mg/dL (74-99); Non-African American GFR(CKD) >90 (>60 ml/min/1.73 sqM); Potassium 4.3 mmol/L (3.5-5.1); Sodium 136 mmol/L (137-145)
[2022-09-17] MEDS ORDERED: ONDANSETRON 4 MG/2 ML VIAL IVP PRN (15:24)
[2022-09-17] MEDS ORDERED: ACETAMINOPHEN TAB 325 MG TAB PO PRN (15:24)
[2022-09-17] MEDS ORDERED: NALOXONE 0.4 MG/ML 1 ML VIAL IV PRN (15:24)
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
[2022-09-17] MEDS: HYDROcodone/APAP 5-325MG 1 EACH TAB PO PRN ×2 (18:44→23:07)
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
[2022-09-18 08:54] LABS: Basophils # (A) 0.09 X 10*3/uL (0.00-0.10); Basophils % (A) 1.2 %; Eosinophils # (A) 0.47 X 10*3/uL (0.04-0.35); HCT 37.2 % (37.2-46.3); HGB 12.1 d/dL (12.0-15.0); Lymphocytes # (A) 1.94 X 10*3/uL (0.90-5.00); MCH 31.3 pg (27.0-32.0); MCHC 32.5 d/dL (32.0-37.0); MCV 96.4 FL (80.0-97.0); NRBC Per 100 WBC 0 X 10*3/uL (0.00-0.01); Neutrophils # (A) 3.77 X 10*3/uL (1.80-7.70); Neutrophils % (A) 48.5 %; Platelet Count 209 X 10*3/uL (140-440); RBC 3.86 X 10*6/uL (4.10-5.20); WBC 7.77 X 10*3/uL (4.50-10.00)
[2022-09-18] MEDS: HYDROcodone/APAP 5-325MG 1 EACH TAB PO PRN ×3 (08:54→20:10)
[2022-09-18] MEDS: HEPARIN SODIUM,PORCINE/PF 5,000 UNIT/0.5 ML SYRINGE SQ SCH ×2 (09:05→20:09)
[2022-09-18] MEDS: amLODIPine 5 MG TAB PO SCH (09:06)
[2022-09-18] MEDS: lisinopriL 20 MG TAB PO SCH (09:07)
[2022-09-18 09:37] LABS: BUN/Creat Ratio 16.86 Ratio (12.00-20.00); Blood Urea Nitrogen 11.8 mg/dL (9.0-27.0); Calcium 8.8 mg/dL (8.7-10.3); Carbon Dioxide 23.5 mmol/L (21.6-31.8); Chloride 101 mmol/L (96-109); Glucose 98 mg/dL (70-110); Potassium 4.2 mmol/L (3.5-5.5); Sodium 137 mmol/L (135-145)
[2022-09-18] MEDS: IBUPROFEN 600 MG TAB PO PRN (21:59)
[2022-09-19 01:21] VITALS: TEMP 98
[2022-09-19 07:16] VITALS: BP 120/67; PULSE 75; RESP 16
[2022-09-19] MEDS: HYDROcodone/APAP 5-325MG 1 EACH TAB PO PRN ×2 (08:29→12:28)
[2022-09-19] MEDS: HEPARIN SODIUM,PORCINE/PF 5,000 UNIT/0.5 ML SYRINGE SQ SCH (08:54)
[2022-09-19] MEDS: lisinopriL 20 MG TAB PO SCH (08:56)
[2022-09-19] MEDS: amLODIPine 5 MG TAB PO SCH (08:57)
[2022-09-19] MEDS: IBUPROFEN 600 MG TAB PO PRN (11:36)
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
== END 2022-09-19 13:46 | DRG 563 ==
LOC: EC 13:35 → 4SSUR 15:26
PROVIDERS: ADMIT Internal Medicine; ATTEND Internal Medicine
DX: S42.022A Displaced fracture of shaft of left clavicle, initial encounter for closed fracture (principal); S32.592A Other specified fracture of left pubis, initial encounter for closed fracture; I10 Essential (primary) hypertension; M81.0 Age-related osteoporosis without current pathological fracture; V18.4XXA Pedal cycle driver injured in noncollision transport accident in traffic accident, initial encounter; R53.81 Other malaise; Z88.5 Allergy status to narcotic agent; Z79.899 Other long term (current) drug therapy; Y93.55 Activity, bike riding
CPT/HCPCS: 36415; 80048; 85025; 99285

== ENCOUNTER → 2023-04-16 | Outpatient (CLI) | payer MEDICARE ==
[2023-04-16 12:05] VITALS: BP 137/82; PULSE 75; RESP 17; TEMP 98.2
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
--- NOTE | 2023-04-17 13:32 | MM ---
Reason for Exam: Screening (asymptomatic). Last mammogram was performed 1 year(s) and 1 month(s) ago. Patient History: Menarche at age 16. First Full-Term at age 24. Hysterectomy at age 35. Postmenopausal. Estrogen, starting at age 35 for 12 years, 1 month. Risk Values: [place] 5 year model risk: 1.7%. NCI Lifetime model risk: 5.6%. Prior Study Comparison: 02/23/2020 Bilateral Screening Mammogram, [facility]. 03/21/2021 Bilateral Screening Mammogram, [facility]. 04/03/2022 Bilateral MG 3D screening mammo w/cad, [facility]. Tissue Density: There are scattered fibroglandular densities. Findings: Analyzed By CAD. There is no suspicious group of microcalcifications or new suspicious mass. Overall Assessment: Negative, BI-RAD 1 Management: Screening Mammogram of both breasts in [address] [facility] will attempt to contact patient to return for supplemental views and ultrasound if indicated. Patient should continue monthly self-breast exams. A clinical breast exam by your physician is recommended on an annual basis. This exam should not preclude additional follow-up of suspicious palpable abnormalities. Note on [place] scores and lifetime risk: 1. A [place] score greater than 3% is considered moderate risk. If this is the case, consider specialist referral to assess eligibility for a risk reducing agent. 2. If overall lifetime risk for the development of breast cancer is 20% or higher, the patient may qualify for future screening with alternating mammogram and breast MRI. Electronically signed and approved by: Richard Olguin DO
== END ==
LOC: WWCWWP 10:36
PROVIDERS: ATTEND Obstetrics & Gynecology
DX: Z12.31 Encounter for screening mammogram for malignant neoplasm of breast (principal); I10 Essential (primary) hypertension; M81.0 Age-related osteoporosis without current pathological fracture; Z79.899 Other long term (current) drug therapy; Z90.49 Acquired absence of other specified parts of digestive tract; Z90.710 Acquired absence of both cervix and uterus; Z88.5 Allergy status to narcotic agent; Z87.891 Personal history of nicotine dependence
CPT/HCPCS: 77063; 77067

== ENCOUNTER → 2023-07-15 | Outpatient (CLI) | payer MEDICARE ==
--- NOTE | 2023-07-15 11:23 | US ---
EXAMINATION TYPE: US thyroid st tissue head/neck DATE OF EXAM: 07/15/2023 COMPARISON: NONE CLINICAL INDICATION: Female, 68 years old with history of E04.2 NONTOXIC MULTINODULAR GOITER; Goiter, hx of nodule. GLAND SIZE: Right Lobe: 4.6 x 2.1 x 1.6 cm Overall Parenchyma: homogeneous Left Lobe: 4.4 x 1.7 x 1.4 cm Overall Parenchyma: homogeneous Isthmus Thickness: 0.22 cm NODULES RIGHT: # of nodules measured on right: 3 1. 1.1 X 1.1 x 0.8 cm, upper medial, cystic or almost completely cystic, anechoic nodule, which is wider than tall, with smooth margins, with echogenic foci. Prior size: 1.1 x 0.8 x 0.9 cm TIRADS Score: 0 TIRADS Category 1: Benign Composition: Cystic or almost completely cystic (0 points). Recommendation: No FNA 2. 0.6 X 0.7 x 0.5 cm, mid Prior size: 0.6 x 0.4 x 0.8 cm TIRADS Score: 0 TIRADS Category 1: Benign Composition: Cystic or almost completely cystic (0 points). Recommendation: No FNA 3. 0.8 X 0.6 x 0.5 cm, upper lateral, Prior size: Does not correlate with prior TIRADS Score: 0 TIRADS Category 1: Benign Composition: Cystic or almost completely cystic (0 points). Recommendation: No FNA LEFT: # of nodules measured on left: 3 1. 1.3 X 1.1 x 0.9 cm, upper lateral, Prior size: 1.2 x 0.7 x 1.1 cm TIRADS Score: 4 TIRADS Category 4: Composition: Solid or almost completely solid (2 points). Echogenicity: Hypoechoic (2 points). Shape: Wider than tall (0 points). Margin: Smooth (0 points). Echogenic foci: None or large comet-tail artifacts (0 points) Recommendation: If >1.5cm: FNA; If >1cm: Follow up at 1,2, 3,5 years 2. 0.8 X 0.7 x 0.4 cm, lower medial, Prior size: Does not correlate with prior TIRADS Score: 0 TIRADS Category 1: Benign Composition: Cystic or almost completely cystic (0 points). Recommendation: No FNA 3. 07 X 0.7 x 0.6 cm, mid lateral, Prior size: Does not correlate with prior TIRADS Score: 4 TIRADS Category 4: Moderately Suspicious Composition: Solid or almost completely solid (2 points). Echogenicity: Hypoechoic (2 points). Shape: Wider than tall (0 points). Margin: Smooth (0 points). Echogenic foci: None or large comet-tail artifacts (0 points) Recommendation: If >1.5cm: FNA; If >1cm: Follow up at 1,2, 3,5 years ISTHMUS: # of nodules measured in the isthmus: 0 Bilateral neck scanned, no evidence of lymphadenopathy. IMPRESSION: Bilateral thyroid lesions most of which are simple appearing cyst. There are 2 left solid nodules kalpana t meet criteria for follow-up.
== END | disposition home or self-care (01) ==
LOC: RADUSWWP 10:06
PROVIDERS: ATTEND Otolaryngology
DX: E04.2 Nontoxic multinodular goiter (principal)
CPT/HCPCS: 76536